=== PATIENT | female | born 2000 | race Caucasian/White ===

== ENCOUNTER 2024-12-12 17:31 | Emergency (ER) | payer OTHER, SELFPAY ==
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
[2024-12-12 17:51] VITALS: BP 119/77; BP 137/79; PULSE 101; PULSE 97; RESP 15; TEMP 37.7; O2SAT 99; BMI 24.9
[2024-12-12 17:57] VITALS: BP 137/79; PULSE 97; RESP 15; TEMP 37.7; O2SAT 99
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
[2024-12-12] MEDS: Diphth,Pertus(ACell),Tet Adult 0.5 ML SYRINGE IM (20:22)
[2024-12-12 20:34] VITALS: BP 126/59; PULSE 76; RESP 16; TEMP 37.2; O2SAT 100
[2024-12-12 21:57] VITALS: BP 114/70; PULSE 88; RESP 19; TEMP 36.7; O2SAT 98
[2024-12-12 22:03] VITALS: BP 114/70; PULSE 88; RESP 19; TEMP 36.7; O2SAT 98
== END 2024-12-12 22:05 | disposition home or self-care (01) ==
PROVIDERS: Emergency Provider Emergency Medicine Emergency Medical Services
DX: S09.90XA Unspecified injury of head, initial encounter (principal); S00.33XA Contusion of nose, initial encounter; S60.812A Abrasion of left wrist, initial encounter; S60.811A Abrasion of right wrist, initial encounter; S50.812A Abrasion of left forearm, initial encounter; S50.811A Abrasion of right forearm, initial encounter; S80.212A Abrasion, left knee, initial encounter; V43.52XA Car driver injured in collision with other type car in traffic accident, initial encounter; W22.11XA Striking against or struck by driver side automobile airbag, initial encounter; R10.31 Right lower quadrant pain; M54.50 Low back pain, unspecified; Y93.89 Activity, other specified; Y92.414 Local residential or business street as the place of occurrence of the external cause; Y99.9 Unspecified external cause status; Z23 Encounter for immunization
CPT/HCPCS: 70450; 70486; 73562; 90471; 90715; 99284

== ENCOUNTER → 2024-12-12 20:22 | Outpatient (BNV) | payer SELFPAY | PROVIDERS: Emergency Provider Emergency Medicine Emergency Medical Services; Visit Provider Radiology Diagnostic Radiology | DX: J34.89 Other specified disorders of nose and nasal sinuses (principal); R68.84 Jaw pain; R51.9 Headache, unspecified; M25.562 Pain in left knee; V89.2XXA Person injured in unspecified motor-vehicle accident, traffic, initial encounter | CPT/HCPCS: 70450; 70486; 73562 ==